=== PATIENT | female | born 1955 | race African-American/Black ===

== ENCOUNTER 2017-01-12 15:42 | Day surgery (SDC) | payer OTHER ==
[~2017-01-12] VITALS: Ht 165.1 cm; Wt 100.9 kg
[2017-01-12 14:56] VITALS: Ht 165.1 cm; Wt 100.9 kg
[~2017-01-12 15:42] MED LIST: ACET1TAB40 PO; ATENOLOL PO; BLOOD PRESSURE MEDS; CHOLESTEROL MEDS; HCTZ PO; LIDOCAINE 2% (SDV) 5 ML INJ ONE; MIDAZOLAM 1 MG/ML 2 ML INJ ONE; NAPROXEN PO; PROPOFOL 40 ML ONE
[2017-01-12 15:45] VITALS: BP 137/79; PULSE 68; RESP 16
[2017-01-12 16:33] VITALS: BP 134/71; RESP 20
--- NOTE | 2017-01-12 18:15 | GILP ---
DATE OF PROCEDURE: 01/12/2017 NAME OF PROCEDURES: 1. Esophagogastroduodenoscopy and biopsy. 2. Colonoscopy and biopsy. SURGEON: Catherine Hill MD PREOPERATIVE DIAGNOSES: 1. Abdominal pain. 2. Screening colonoscopy. POSTOPERATIVE DIAGNOSES: 1. Superficial ulcers on the antrum and biopsies were taken for histopathology. 2. Gastritis with erosions. 3. Colonoscopy all the way to the anastomotic area and into the small bowel. 4. Prominent sigmoid fold and biopsies were taken for histopathology. 5. Internal hemorrhoids. INDICATION FOR THE PROCEDURE: Ms. Emmy Torres is a 61-year-old female patient who had upper abdomin al pain, not responding to therapy. She also noticed a change in the bowel habit. She had history of colon cancer for which she had undergone surgery in the past. The patient was scheduled for endo scopy and screening colonoscopy. The procedures and possible complications are well explained to the patient, she understood and cons ented to the procedure. DESCRIPTION OF PROCEDURE: Under the influence of anesthesia, the upper endoscope was carefully intr oduced into the esophagus and under direct vision, it was advanced to the stomach and through the py lorus into the duodenal bulb and descending duodenum. FINDINGS: ESOPHAGUS: The mucosa was normal. STOMACH: The patient had superficial ulcers on the gastric antrum and biopsies were taken for histo pathology. She was noted to have gastritis with erosions. DUODENUM: Normal. The colonoscope was carefully introduced in the rectum and under direct vision, it was advanced all the way to the anastomotic area and into the terminal ileum. FINDINGS: The patient had normal terminal ileum. She was noted to have prominent fold in the sigmo id colon and biopsies were taken for histopathology. She had internal hemorrhoids. No recurrent co ernesto neoplasm was identified. She tolerated the procedures very well and there was no complication from the procedures. At the en d of the procedures, she was awake with stable vital signs and she was discharged home to the care o f her family. IMPRESSION: 1. Superficial gastric ulcers and biopsies were taken for histopathology. 2. Gastritis with erosions. 3. Colonoscopy all the way to the anastomotic area and into the terminal ileum. 4. Normal terminal ileum. 5. Prominent sigmoid fold and biopsies were taken for histopathology. 6. Internal hemorrhoids. 7. No colon neoplasm was identified. PLAN: 1. Omeprazole 40 mg p.o. q.a.m. 2. Await histopathology reports. 3. Screening colonoscopy in 10 years. Dictated By: CATHERINE COOMBS/BANG Conf#: [id number] DID#: [id number]
== END 2017-01-12 16:37 | disposition home or self-care (01) ==
LOC: GIL 15:42
PROVIDERS: ATTEND Internal Medicine Gastroenterology
DX: Z12.11 Encounter for screening for malignant neoplasm of colon (principal); K29.60 Other gastritis without bleeding; K64.8 Other hemorrhoids; K25.9 Gastric ulcer, unspecified as acute or chronic, without hemorrhage or perforation; I10 Essential (primary) hypertension; E78.5 Hyperlipidemia, unspecified; J45.909 Unspecified asthma, uncomplicated
CPT/HCPCS: 43239; 45380; 88305; 88312; J2250; Z7610